=== PATIENT | female | born 1995 | race African-American/Black ===

== ENCOUNTER 2017-04-03 01:40 | Emergency (ER) | payer OTHER ==
[2017-04-03 02:21] LABS: URINE HCG POC HCG NEGATIVE (Negative)
[2017-04-03] MEDS: KETOROLAC 60 MG/2 ML INJ. IM ×2 (03:00)
[2017-04-03] MEDS: MORPHINE SULFATE 10 MG/ML VIAL. IM ×2 (03:00)
== END 2017-04-03 03:05 | disposition home or self-care (01) ==
LOC: ER 01:40
DX: M54.6 Pain in thoracic spine (principal)
CPT/HCPCS: 81025; 96372; 99284; J1885; J2270

== ENCOUNTER 2017-05-11 15:32 | Emergency (ER) | payer OTHER ==
[2017-05-11] MEDS: LORazepam 1 MG TABLET PO (16:46)
[2017-05-11 16:56] LABS: ADD MAN DIFF? NO
[2017-05-11 16:59] LABS: BASO % 1 % (0-3); EOS # 0.1 x10^3/uL (0.0-0.7); EOS % 5 % (0-3); HEMATOCRIT 41.2 % (36.0-47.0); HEMOGLOBIN 14.2 g/dL (12.0-15.5); LYMPH # 1.2 x10^3/uL (1.0-4.8); LYMPH % 46 % (24-48); MEAN CORPUSCULAR HEMOGLOBIN 33 pg (25-35); MEAN CORPUSCULAR HGB CONC 34 g/dL (31-37); MEAN CORPUSCULAR VOLUME 96 fL (79-100); MONO # 0.3 x10^3/uL (0.0-1.1); MONO % 9 % (0-9); NEUT % 39 % (31-73); PLATELET COUNT 239 x10^3/uL (140-400); RED BLOOD COUNT 4.29 x10^6/uL (3.50-5.40); RED CELL DISTRIBUTION WIDTH 12.7 % (11.5-14.5); WHITE BLOOD COUNT 2.7 x10^3/uL (4.0-11.0)
[2017-05-11 17:17] LABS: ANION GAP 9 (6-14); BLOOD UREA NITROGEN 14 mg/dL (7-20); CALCIUM 9.3 mg/dL (8.5-10.1); CARBON DIOXIDE 27 mmol/L (21-32); CHLORIDE 105 mmol/L (98-107); CREATININE 0.6 mg/dL (0.6-1.0); GFR 151.3; GLUCOSE 79 mg/dL (70-99); POTASSIUM 3.9 mmol/L (3.5-5.1); SODIUM 141 mmol/L (136-145)
[2017-05-11 17:19] LABS: ETHANOL < 10 mg/dL (0-10)
[2017-05-11 17:25] LABS: BARBITURATES NEG (NEG); BENZODIAZEPINES NEG (NEG); CANNABINOIDS POS (NEG); COCAINE NEG (NEG); METHADONE NEG (NEG); OPIATES NEG (NEG); PHENCYCLIDINE NEG (NEG)
[2017-05-11 17:26] LABS: AMPHETAMINE/METHAMPHETAMINE NEG (NEG); ETHANOL, URINE NEG (NEG)
== END 2017-05-11 18:28 | disposition home or self-care (01) ==
LOC: ER 15:32
DX: F41.9 Anxiety disorder, unspecified (principal); F32.9 Major depressive disorder, single episode, unspecified; F12.10 Cannabis abuse, uncomplicated
CPT/HCPCS: 36415; 80048; 80307; 85025; 99284; G0480